=== PATIENT | female | born 2000 | race Hispanic/Latino ===

== ENCOUNTER 2025-07-08 17:02 | Emergency (ER) | payer OTHER, SELFPAY ==
[2025-07-08] VITALS (10 sets, daily range): BP systolic 101–135; BP diastolic 60–86
--- NOTE | 2025-07-08 17:19 | ED.GENMED ---
History of Present Illness
General
Chief Complaint: Overdose Unintentional
Source: patient
Exam Limitations: none
Time Seen by Provider: 07/08/25 17:15
Nursing documentation reviewed up to this point in time: agreed with
History of Present Illness
History of Present Illness:
Patient who currently resides in [facility] house, presents to ED after she was found to be difficult to be aroused, during transport [place] this [place]. Police were dispatched to the scene, where they recovered what is thought to be
compressed fentanyl tablets. Tablets were taken away by police officers. Patient did wake up briefly to tell the caregiver, that she thought those were her Xanax pills. Upon arrival, patient is somnolent and responds only to sternal physical
stimuli. Unable to obtain any further information at this time. Patient was given Narcan IM by medics, without improvement in symptoms.
Review of Systems
Review of Systems
Allergies reviewed?: Yes
Unable to obtain full review of systems at this time due to: due to acuity
All Other Systems: Not applicable
Phy Exam
Physical Exam
Physical Exam:
Physical Exam
General: no apparent distress, not acutely ill. afebrile
Head: nc/at. pupils 3mm b/l and reactive
Neck: supple. normal range of motion.
Heart: s1/s2 regular rate and rhythm
Lungs: no acute respiratory distress. clear bilaterally
Abdomen: normal bowel sounds. no distention
Neuro: somnolent, localizes to physical stimuli. spontaneous movement of extremities noted
Skin: no rash
Extremities: no edema.
Course
Orders/Labs/Results
Orders:
Orders
07/08/25 17:15
Electrocardiogram (*1) Stat
Reason for Study: Other
Other Reason for Exam: overdose
EKG- Treatment ONCE
0.9% Sodium Chloride 500 ml [Nss] 500 ml IV BOLUS
Ondansetron Injectable [Zofran] 4 mg IV NOW STA
Test Result ONCE
07/08/25 17:24
Naloxone [Narcan] 2 mg .ROUTE .STK-MED ONE
07/08/25 17:28
Naloxone [Narcan] 1 mg IV NOW STA
07/08/25 17:37
Acetaminophen Urgent
Alcohol Urgent
Complete Blood Count/No Diff Urgent
Comprehensive Metabolic Panel Urgent
HCG, Serum Qualitative Screen Urgent
Salicylate Urgent
Abnormal Lab Results
07/08/25
17:37
RBC 4.15 L 10^6/uL
(4.20-5.40)
Hct 36.0 L %
(37.0-47.0)
Glucose 156 H mg/dl
(70-99)
Total Bilirubin 0.1 L mg/dl
(0.2-1.3)
Salicylates < 1.0 L mg/dl
(2.0-20.0)
Acetaminophen < 10 L ug/ml
(10-30)
07/08/25 17:37
07/08/25 17:37
Vital Signs
Initial and Last Documented VS:
Initial Vital Signs
Temp Pulse Resp BP Pulse Ox
98.2 F 56 22 135/86 98
07/08/25 17:10 07/08/25 17:10 07/08/25 17:10 07/08/25 17:10 07/08/25 17:10
Last Documented Vital Signs
Temp Pulse Resp BP Pulse Ox
98.2 F 80 20 106/71 97
07/08/25 17:10 07/08/25 23:00 07/08/25 23:00 07/08/25 23:00 07/08/25 21:00
MDM/Problems Addressed
MDM/Problems Addressed:
During observation, patient becoming more lucid. Parents arrived at bedside. Had long discussion with patient, parents, and patient case manager from residence where patient resides currently. Offered options to return to facility after eval/treatment at
in-patient tx. However, patient adamant about being discharged home. Pt is alert, awake, and oriented, mentally competent. No suicidal thoughts/risks. No indication for 302 petition, which parents understand. Pt states that she accessed meds today,
as she was tired of staying at current rehab facility for too long. Parents reluctanly agreed to take patient home, where she states that she will contact local IOP where she's participated in the past. Otherwise, pt is alert/awake/oriented and
without any distress, at time of discharge
*Pulse Oximetry
Patient hypoxic: no
*EKG
Interpreted by ED Provider?: Yes
EKG Intrepretation Date: 07/08/25
Heart Rate: 55
Rate: bradycardiac
Rhythm: sinus
[place]: normal axis
Interval: normal interval
*Critical Care Note
Total Time (30-74mins, 75-104mins- exclusive of procedures): Not Applicable
ED Attending Note
-
Portions of this chart may have been created with voice recognition software.� Occasional wrong word or��sound alike� substitutions may have occurred due to the inherent limitations of voice recognition software.
Discharge Plan
Departure
Patient Disposition: Home (Routine Discharge)
Date of Disposition: 07/09/25
Time of Disposition: 00:27
Patient with high blood pressure during this ER visit?: Yes
Condition: Fair
Discharge Problem:
Overdose
Instructions: Opioid Overdose (DC)
Referrals:
UNKNOWN - PT DOES,NOT KNOW [Family Provider]
Activity Restrictions/Additional Instructions:
As discussed, please follow-up with your therapist and/or psychiatrist, as soon as you return home for continual evaluation and treatment.
Interventions
Interventions:
*Nursing Disposition Last Done: 07/09/25 01:15
ED- Cardiac Assessment Last Done: 07/08/25 18:34
ED- Neurological Assessment Last Done: 07/08/25 18:34
ED-Psychological Assessment Last Done: 07/08/25 18:34
ED- Pulmonary Assessment Last Done: 07/08/25 18:34
Discharge Date and Time
Discharge Date/Time: 07/09/25 01:15
Print Language: KHMER
[2025-07-08] MEDS: NSS 500 IV (17:38)
[2025-07-08] MEDS: NARCAN 1 MG IV (17:39)
[2025-07-08] MEDS: ZOFRAN 4 MG IV (17:39)
[2025-07-08 17:49] LABS: Hematocrit 36.0 % (37.0-47.0); Hemoglobin 12.3 g/dL (12.0-16.0); Mean Corp Hgb Conc. 34.2 g/dL (33.0-37.0); Mean Corpuscular Volume 86.7 fL (81.0-99.0); Platelet Count 333 10^3/uL (130-400); Red Cell Dist. Width 13.3 % (11.5-14.5)
[2025-07-08 18:17] LABS: HCG, Serum Qualitative Screen Negative
[2025-07-08 18:22] LABS: ALT (SGPT) 17 U/L (0-35); AST (SGOT) 22 U/L (14-36); Albumin 4.6 g/dl (3.5-5.0); Alkaline Phosphatase 71 U/L (38-126); Blood Urea Nitrogen 14 mg/dl (7-17); Calcium 9.3 mg/dl (8.4-10.2); Carbon Dioxide 25 mmol/L (22-30); Chloride 105 mmol/L (98-107); Glucose 156 mg/dl (70-99); Potassium 4.6 mmol/L (3.5-5.1); Sodium 136 mmol/L (135-145); Total Protein 7.7 g/dl (6.3-8.2); eGFR > 60.00
[2025-07-08 18:23] LABS: Acetaminophen < 10 ug/ml (10-30); Salicylate < 1.0 mg/dl (2.0-20.0)
== END 2025-07-09 01:15 | disposition home or self-care (01) ==
LOC: EMR 17:02
PROVIDERS: EMERGENCY PHYSICIAN Emergency Medicine
DX: T50.901A Poisoning by unspecified drugs, medicaments and biological substances, accidental (unintentional), initial encounter (principal); Y92.9 Unspecified place or not applicable
CPT/HCPCS: 99283; 96374; 96375; 80053; 80143; 80179; 82077; 84703; 85027; 93005